=== PATIENT | male | born 1975 | race Caucasian/White ===

== ENCOUNTER 2023-12-08 08:28 | Emergency (ER) | payer OTHER, SELFPAY ==
[2023-12-08 08:31] VITALS: BP 120/74; PULSE 52; RESP 18; TEMP 36; O2SAT 98; BMI 30.1
--- NOTE | 2023-12-08 08:37 | CRLHL7_ITS ---
For Patients: As a result of the Cures Act, medical imaging exams and procedure reports are released immediately into your electronic medical record. You may view this report before your referring provider. If you have questions, please contact your health care provider. Indication: CUT TIP OFF WITH TABLE SAW Technique: Left 1st digit, 3 views. Comparison: None. Impression: Subtle soft tissue defect at the distal tip of the 1st phalanx, likely relates to sequela of reported trauma. No radiopaque foreign body or subcutaneous emphysema. No evidence of fracture. Dictated by Meet Plasencia MD @ 12/08/2023 9:28:12 AM (Electronically Signed)
--- NOTE | 2023-12-08 08:55 | ED.WOUNDLAC ---
HPI - Wound/Laceration General Date Seen: 12/19/23 Chief Complaint: Laceration/Wound Stated Complaint: L thumb lac Time Seen by Provider: 12/08/23 08:35 Source: patient Mode of arrival: ambulatory Limitations: no limitations History of Present Illness HPI narrative: Patient is a 47-year-old male presenting for left thumb laceration. He states but 20 minutes prior to arrival he was using a table saw when he caught the tip of his left thumb. He states the pain was minimal but considering the amount of avulsed skin he figured he should come to the emergency department to get it checked out. His last tetanus shot was in 2018. Denies any other injuries. States he has full range of motion of his thumb. Did have some nausea and 1st occurred but that has since resolved. No other concerns noted Related Data Home Medications ?Medication ?Instructions ?Recorded ?Confirmed No Known Home Medications 12/08/23 12/08/23 Allergies Allergy/AdvReac Type Severity Reaction Status Date / Time No Known Drug Allergies Allergy Verified 12/08/23 08:35 Review of Systems Narrative: Pertinent systems reviewed and were negative unless stated in HPI Exam Narrative: Exam Narrative: Const: Well-nourished, Well-developed, in mild distress Eyes: PERRL, no conjunctival injection, and symmetrical lids HENT: Atraumatic external nose and ears. Moist mucous membranes. MSK:Extremities w/o deformity, Normal Active ROM Skin: Warm, Dry. Avulsion the scan and soft tissue and the distal fingernail to the left thumb worse on the medial aspect being becoming were shallow as the avulsion goes lateral. I do not see any bone Neuro: Normal Muscle tone, No focal neurological deficits. Psych: Awake, Alert, & Oriented x3. Appropriate mood and affect. Const: Vital Signs, click to edit/add: Vital Signs - 24 hr 12/08/23 08:31 Temperature 96.8 F L Pulse Rate [Pulse Oximeter] 52 L Respiratory Rate 18 Blood Pressure [Ri ght Upper Arm] 120/74 Pulse Oximetry 98 Oxygen Delivery Me thod Room Air Course Vital Signs Vital signs: Initial Vital Signs Temperature 96.8 F L 12/08/23 08:31 Temperature Source Temporal Artery Scan 12/08/23 08:31 Pulse Rate 52 L 12/08/23 08:31 Respiratory Rate 18 12/08/23 08:31 Blood Pressure 120/74 12/08/23 08:31 Blood Pressure Mean 89 12/08/23 08:31 Blood Pressure Position Supine 12/08/23 08:31 Pulse Oximetry 98 12/08/23 08:31 Oxygen Delivery Method Room Air 12/08/23 08:31 Vital Signs Temperature 96.8 F L 12/08/23 08:31 Pulse Rate 52 L 12/08/23 08:31 Respiratory Rate 18 12/08/23 08:31 Blood Pressure 120/74 12/08/23 08:31 Pulse Oximetry 98 12/08/23 08:31 Oxygen Delivery Method Room Air 12/08/23 08:31 Temperature 96.8 F L 12/08/23 08:31 Pulse Rate 52 L 12/08/23 08:31 Respiratory Rate 18 12/08/23 08:31 Blood Pressure 120/74 12/08/23 08:31 Pulse Oximetry 98 12/08/23 08:31 Oxygen Delivery Method Room Air 12/08/23 08:31 MDM - Wound/Laceration MDM Narrative Medical decision making narrative: Patient is a 47-year-old male for a left thumb avulsion injury of the soft tissue secondary to a table saw. An x-ray will be done to make sure there was no bone involvement. X-ray reviewed myself with the radiologist shows no signs of fracture. There is not enough skin and soft tissue for a laceration repair and loss will be left open. He will be started on antibiotics. Wound was covered. His tetanus is up-to-date. I informed the follow-up with orthopedics in 1 week since he does not have a primary care provider to have it re-evaluated to make sure it is healing well. He is agreeable to this plan. Gave return precautions for signs of infection. Imaging Data Left thumb x-ray: Attestation: I have reviewed the pertinent imaging results. Radiologist's impression: Subtle soft tissue defect at the distal tip of the 1st phalanx, likely relates to sequela of reported trauma. No radiopaque foreign body or subcutaneous emphysema. No evidence of fracture. Dictated by Meet Plasencia MD @ 12/08/2023 9:28:12 AM Discharge Plan Discharge Clinical Impression: Avulsion of skin Patient Disposition: Home, Self-Care Condition: Stable Instructions: Skin Avulsion (ED) Additional Instructions: Take the antibiotics as directed. Take Tylenol and ibuprofen as needed for pain. Follow up with [facility] in 1 week to have the wound re-evaluated to make sure it is healing well. You can call them at . Return to emergency department for any signs of infection. Prescriptions: No Action No Known Home Medications Follow Up/Referrals: Provider,Not a Local [Primary Care Provider] - Stand Alone Forms: [employer] Info Instructions
== END 2023-12-08 10:03 | disposition home or self-care (01) ==
PROVIDERS: Emergency Provider Student in an Organized Health Care Education/Training Program
DX: S61.012A Laceration without foreign body of left thumb without damage to nail, initial encounter (principal); W31.2XXA Contact with powered woodworking and forming machines, initial encounter
CPT/HCPCS: 73140; 99282; 99283